=== PATIENT | female | born 1935 | race Caucasian/White ===

== ENCOUNTER 2017-08-13 10:15 | Outpatient (CLI) | payer OTHER ==
[~2017-08-13 10:15] MED LIST: SYNTHROID88 MCG
== END 2017-08-13 10:23 | disposition home or self-care (01) ==
LOC: LAB 10:15
DX: E78.4 Other hyperlipidemia (principal); E11.9 Type 2 diabetes mellitus without complications; E04.1 Nontoxic single thyroid nodule; N39.0 Urinary tract infection, site not specified; E55.9 Vitamin D deficiency, unspecified; R82.79 Other abnormal findings on microbiological examination of urine

== ENCOUNTER 2017-10-09 05:29 | Emergency (ER) | payer OTHER ==
[~2017-10-09] VITALS: Ht 162.6 cm; Wt 55.3 kg
== END 2017-10-09 13:15 | disposition home or self-care (01) ==
LOC: ER 05:29 → CPU-OBS 05:31 → ER 13:15
DX: M94.0 Chondrocostal junction syndrome [Tietze] (principal); R07.89 Other chest pain

== ENCOUNTER 2018-08-26 11:53 | Outpatient (CLI) | payer OTHER | END 2018-08-26 11:54 | disposition home or self-care (01) | LOC: SONOGRAMA 11:53 | DX: M75.101 Unspecified rotator cuff tear or rupture of right shoulder, not specified as traumatic (principal); M75.102 Unspecified rotator cuff tear or rupture of left shoulder, not specified as traumatic ==

== ENCOUNTER 2018-11-25 16:25 | Outpatient (CLI) | payer OTHER | END 2018-11-25 17:02 | disposition home or self-care (01) | LOC: LAB 16:25 → RAD 16:25 | DX: M17.12 Unilateral primary osteoarthritis, left knee (principal) ==

== ENCOUNTER 2018-11-30 14:42 | Emergency (ER) | payer OTHER ==
[~2018-11-30] VITALS: Ht 162.6 cm; Wt 59.0 kg
== END 2018-11-30 21:41 | disposition home or self-care (01) ==
LOC: ER 14:42
DX: G47.62 Sleep related leg cramps (principal)

== ENCOUNTER 2019-01-20 13:23 | Emergency (ER) | payer OTHER ==
[~2019-01-20] VITALS: Ht 157.5 cm; Wt 61.2 kg
== END 2019-01-20 19:06 | disposition home or self-care (01) ==
LOC: ER 13:23
DX: R42 Dizziness and giddiness (principal); N39.0 Urinary tract infection, site not specified

== ENCOUNTER 2019-04-26 11:21 | Outpatient (CLI) | payer OTHER | END 2019-04-26 15:19 | disposition home or self-care (01) | LOC: SONOGRAMA 11:21 | DX: M75.102 Unspecified rotator cuff tear or rupture of left shoulder, not specified as traumatic (principal); M75.101 Unspecified rotator cuff tear or rupture of right shoulder, not specified as traumatic ==

== ENCOUNTER 2019-10-03 12:38 | Outpatient (CLI) | payer OTHER | END 2019-10-03 14:14 | disposition home or self-care (01) | LOC: RAD 12:38 | DX: M51.36 Other intervertebral disc degeneration, lumbar region (principal); T14.90XA Injury, unspecified, initial encounter; M19.90 Unspecified osteoarthritis, unspecified site ==